=== PATIENT | male | born 1970 | race Caucasian/White ===

== ENCOUNTER 2023-01-23 15:19 | Outpatient (REF) | payer BC, SELFPAY | END 2023-01-23 15:20 | disposition home or self-care (01) | LOC: HO.SH 15:19 | PROVIDERS: Visit Provider Nurse Practitioner Family | DX: Z46.1 Encounter for fitting and adjustment of hearing aid (principal); H90.3 Sensorineural hearing loss, bilateral; H93.13 Tinnitus, bilateral | CPT/HCPCS: 92557; 92567 ==